=== PATIENT | female | born 1965 | race Caucasian/White ===

== ENCOUNTER 2018-11-26 13:34 | Emergency (ER) | payer BC ==
--- NOTE | 2018-11-26 13:37 | PDOC ---
History of Present Illness - General Chief Complaint: Laceration Stated Complaint: CUT MY FINGER Time Seen by Provider: 11/26/18 13:36 History Source: Patient Exam Limitations: No Limitations - History of Present Illness Initial Comments: 11/26/18 13:37 53 YOF presenting with rt index finger laceration s/p cutting with sewing machine. bleeding controlled. able to move finger/wiggles, no paresthesias, weakness. tetanus up to date < 10 years. she was seen at urgent care [facility], but referred to the ED for repair. 11/26/18 18:13 11/26/18 18:50 Past History - Past Medical History Allergies/Adverse Reactions: Allergies Allergy/AdvReac Type Severity Reaction Status Date / Time No Known Allergies Allergy Verified 11/26/18 13:35 Home Medications: Ambulatory Orders No Home Medications 0 dose .ROUTE UTDICT 05/31/13 Cephalexin Monohydrate [Keflex -] 500 mg PO Q8H #20 capsule 11/26/18 - Suicide/Smoking/Psychosocial Hx Smoking History: Current some day smoker Have you smoked in the past 12 months: Yes Number of Cigarettes Smoked Daily: 6 'Breaking Loose' booklet given: 05/31/13 Hx Alcohol Use: Yes ("OCCASIONAL") Review of Systems - Review of Systems Able to Perform ROS?: Yes Comments:: 11/26/18 18:18 Constitutional: no fevers or chills. MUSCULOSKELETAL: No joint pain and swelling. No muscle pain/arthralgias. Back: no back pain SKIN: no redness or skin changes, no discharge, no rash. +laceration wound Hematologic: no easy bruising/bleeding. NEUROLOGIC: No weakness, numbness or tingling. Allergic/Immunologic: no allergies All other systems reviewed and negative, or as documented in HPI. *Physical Exam - Physical Exam Comments: 11/26/18 18:19 General: NAD, well appearing Vascular: 2+ radialis pulses symmetric and equal. Neuro: distal range feeder strength 5/5. sensation grossly intact in median/radial/ ulnar distribution. MSK: soft compartments, Cap refill <2 sec. 2+ radialis pulses bilaterally and symmetric. FDP/FDS intact. no joint tenderness. FROM. Skin: color normal color, warm and well perfused. Curvilinear Laceration to rt index finger at PIP joint on dorsal aspect, measuring 3cm, with contused tissue and swelling. nonbleeding, nontender. 11/26/18 18:51 Procedures - Laceration/Wound Repair Right Dorsal Finger Wound Length: 2.6 to 5.0 cm Wound Explored: clean, no foreign body present Wound's Depth, Shape: irregular, contused tissue Irrigated w/ Saline: Yes Betadine Prep: No Anesthesia: 1% Lidocaine Amount of Anesthetic (ccs): 4 Wound Debrided: minimal Wound Repaired With: Sutures Suture Size/Type: 5:0 Number of Sutures: 7 Layer Closure: No Sterile Dressing Applied: Yes Splint Applied: Yes Type of Splint Applied: finger splint right index finger Medical Decision Making - Medical Decision Making 11/26/18 18:10 wound/laceration assessed and repaired, w/o complications, bleeding controlled. area cleaned and dried, dressings placed with topical bacitracin. monitor for signs of infection including fevers or chills, redness, streaking, swelling, purulence, malodor. keep dry x 24 hours, then may wash with soap and water 2-3X per day, topical antibiotics such as neosporin. follow up in 10-14 days for suture removal. motrin/tylenol for pain control. tetanus is also up to date. copious irrigation with sterile water/normal saline approx 1 Liter, tolerated without difficulty. areas cleaned and dried, xeroform/topical abx, non adherent dressings, gauze and supportive care. finger splint for immobilization. due to proximity to rt index PIP joint, risk of infection, keflex x 1 week course for ppx , if not improving or worsening sx >24-48 hours, return sooner for reeval/wound check/IV abx. keep area clean and covered, may clean with soap and water. motrin/tylenol as needed for pain control. take medications with food. pt made aware of impression and plan. hand/plastics referrals given as well 11/26/18 18:53 *DC/Admit/Observation/Transfer Diagnosis at time of Disposition: Finger laceration Qualifiers: Encounter type: initial encounter Finger: index finger Damage to nail status: unspecified Foreign body presence: unspecified Laterality: right Qualified Code( s): S61.210A - Laceration without foreign body of right index finger without damage to nail, initial encounter - Discharge Dispostion Disposition: HOME Condition at time of disposition: Stable Decision to Admit order: No - Prescriptions Prescriptions: Cephalexin Monohydrate [Keflex -] 500 mg PO Q8H #20 capsule - Referrals Referrals: Cosme Guido MD [Staff Physician] - Willian Colmenares MD [Staff Physician] - - Patient Instructions Printed Discharge Instructions: DI for Laceration Repair Additional Instructions: Wound dressed with topical Bacitracin and sterile gauze. Follow up with your primary care doctor within 48-72 hours for a wound check. Keep sutures covered and dry for 24 hours then clean with soap and water daily - do not scrub. make sure to keep the splint for immobilization Apply bacitracin or neosporin twice a day with warm soaks and cover with gauze/ dressings. Then cut a small piece of yellow xeroform and then wrap in dressing and the splint over the area. Return to ED or the plastic surgeon/hand specialist for suture removal 10-14 days. Return to the ED for any worsening pain, redness , streaking (red lines), swelling, fever or chills. Keep the wound clean and as dry as possible. Do not immerse or soak the wound in water. This means no swimming, washing dishes (unless thick rubber gloves are used), baths, or hot tubs until the stitches are removed or after about two weeks if absorbable suture material was used. Leave original bandages on the wound for the first 24 hours. After this time, showering or rinsing is recommended, rather than bathing. the first day, remove old bandages and gently cleanse the wound with soap and water. Cleansing twice a day prevents buildup of debris and will result in easier suture removal. - Post Discharge Activity
[2018-11-26 13:43] VITALS: BP 118/86; PULSE 85; TEMP 98.5; BMI 19.5
[2018-11-26] MEDS ORDERED: CEPHALEXIN MONOHYDRATE 500 MG CAPSULE (UD) PO ONE (15:05)
[2018-11-26] MEDS ORDERED: CEPHALEXIN MONOHYDRATE 500 MG CAPSULE (UD) ONE (15:18)
== END 2018-11-26 15:44 | disposition home or self-care (01) ==
LOC: FER 13:34
PROC: 0HQFXZZ Repair Right Hand Skin, External Approach (ICD-10-PCS; principal; 2018-11-26)
DX: S61.210A Laceration without foreign body of right index finger without damage to nail, initial encounter (principal); W45.8XXA Other foreign body or object entering through skin, initial encounter; Y93.89 Activity, other specified; Y92.89 Other specified places as the place of occurrence of the external cause; F17.210 Nicotine dependence, cigarettes, uncomplicated
CPT/HCPCS: 99282-25